=== PATIENT | female | born 1970 | race African-American/Black ===

== ENCOUNTER → 2016-09-05 | Emergency (ER) | payer OTHER ==
[~2016-09-05] MED LIST: IBUPROFEN 600 MG TABLET (FP) PO ONE; KETOROLAC TROMETHAMINE 60 MG/2 ML VIAL IM ONE; KETOROLAC TROMETHAMINE 60 MG/2 ML VIAL ONE
[2016-09-05 10:10] VITALS: BMI 36.7
--- NOTE | 2016-09-05 10:24 | PDOC ---
History of Present Illness - General History Source: Patient Exam Limitations: No Limitations - History of Present Illness Initial Comments: 09/05/16 10:26 The patient is a 46-year-old woman with a significant past medical history of hypertension, non-insulin dependent diabetes mellitus, gastroesophageal reflux disease and chronic back pain who presents to the emergency department with complaints of abdominal pain. She states that she has been experiencing intermittent abdominal discomfort sensations that are focalized over the left lower quadrant for the past year. She notes that her pain is exacerbated to a rated 7/10 in severity whenever she coughs, sneezes or with exertional activity (walking, sitting up).She notes that her pain is alleviated while at rest ( lying flat). She denies any associated symptoms of fever, chills, dysuria, flank pain, urinary frequency/urgency, constipation, blood per rectum, melena, chest pain, lightheadedness, dizziness, shortness of breath. She also notes that when she stands up, she feels a bump over her left lower quadrant. She states that she has been evaluated several times for this matter and states that she has not received a definitive answer. She presents today to the ED for further evaluation, as she started to experience left posterior thigh pain that radiates down her left leg to the knee , last night while she was reclined watching television. She does not provide any exacerbating/alleviating factors. She is able to bear weight on her leg without worsening. She expresses concern as she is unaware if her new symptoms are related to her abdominal pain. No numbness, weakness and paresthesias to her extremities. No recent trauma. Patient denies any urinary/bowel complaints. Allergies: No Known Drug Allergies Past Surgical History: None reported Social History: Never smoked. No EtOH and recreational drug use. Primary Care Physician: Dr. Eve Vazquez [phone] <Joseline Mancini - Last Filed: 09/05/16 11:47> <Lee Beltran - Last Filed: 09/05/16 14:30> - General Chief Complaint: Pain, Acute Stated Complaint: PAIN Time Seen by Provider: 09/05/16 10:12 Past History <Joseline Mancini - Last Filed: 09/05/16 11:47> - Past Medical History Diabetes: Yes GI Disorders: Yes (REFLUX) HTN: Yes - Psycho/Social/Smoking Cessation Hx Suicidal Ideation: No Smoking History: Never smoked Hx Alcohol Use: No Drug/Substance Use Hx: No <Lee Beltran - Last Filed: 09/05/16 14:30> - Past Medical History Allergies/Adverse Reactions: Allergies Allergy/AdvReac Type Severity Reaction Status Date / Time No Known Allergies Allergy Verified 09/05/16 10:28 Home Medications: Ambulatory Orders Amlodipine Besylate 5 mg PO DAILY 09/05/16 Insulin Glargine,Hum.rec.anlog [Lantus (nf)] 40 units SQ DAILY 09/05/16 Lisinopril [Zestril] 2.5 mg PO DAILY 09/05/16 Metformin HCl [Glucophage -] 500 mg PO BID 09/05/16 Omeprazole 20 mg PO DAILY 09/05/16 Review of Systems - Review of Systems Able to Perform ROS?: Yes Comments:: 09/05/16 10:26 CONSTITUTIONAL: No reported: Fever, Chills, Diaphoresis, Generalized Weakness, Malaise, Loss of Appetite HEENT: No reported: Rhinorrhea, Nasal Congestion, Throat Pain, Throat Swelling, Difficulty Swallowing, Mouth Swelling, Ear Pain, Eye Pain, Visual Changes CARDIOVASCULAR: No reported: Chest Pain, Syncope, Palpitations, Irregular Heart Rate, Lightheadedness, Peripheral Edema RESPIRATORY: No reported: Cough, Shortness of Breath, SOB with Exertion, Orthopnea, Wheezing , Stridor, Hemoptysis GASTROINTESTINAL: Reported: Left Lower Qaudrant Abdominal Pain. No reported: Abdominal Distension , Nausea, Vomiting, Diarrhea, Constipation, Melena, Hematochezia GENITOURINARY: No reported: Dysuria, Frequency, Urgency, Hesitancy, Flank Pain, Genital Pain MUSCULOSKELETAL: Reported: Left Thigh Pain Radiating Down Her Leg. No reported: Arthralgia, Joint Swelling, Back pain, Neck Pain SKIN: No reported: Rash, Itching, Pallor HEMEATOLOGIC/IMMUNOLOGIC: No reported: Easy Bleeding, Easy Bruising, Lymphadenopathy, Frequent infections ENDOCRINE: No reported: Unexplained Weight Gain, Unexplained Weight Loss, Heat Intolerance , Cold Intolerance NEUROLOGIC: No reported: Headache, Focal Weakness, Paresthesias, Vertigo, Lightheadedness, Unsteady Gait, Seizure, Mental Status Changes, Incontinence PSYCHIATRIC: No reported: Anxiety, Depression <Mancini,Joseline - Last Filed: 09/05/16 11:47> *Physical Exam - Vital Signs Last Vital Signs Temp Pulse Resp BP Pulse Ox 98 F 91 H 18 128/81 99 09/05/16 10:07 09/05/16 10:07 09/05/16 10:07 09/05/16 10:07 09/05/16 10:07 - Physical Exam Comments: 09/05/16 10:26 GENERAL: The patient is awake, alert, and fully oriented, Nontoxic - in no acute distress. HEAD: Normocephalic, atraumatic. EYES: extraocular movements intact, sclera anicteric, conjunctiva clear. ENT: Normal voice, Moist mucous membranes. NECK: Normal range of motion, supple LUNGS: Breath sounds equal, clear to auscultation bilaterally. No wheezes, no rhonchi, no rales. HEART: Regular rate and rhythm, normal S1 and S2 without murmur, rub or gallop. ABDOMEN: Soft, nontender, +reducible L splegian hernia in abdomenal wall BACK: Mild tenderness of L parapsinal muscles in lumbar region, EXTREMITIES: Normal range of motion, NEUROLOGICAL: No facial assymetry, Normal speech, strength, sensation intact and symmetric b/l in lower extremities, normal gait. PSYCH: Normal mood, normal affect. SKIN: Warm, Dry, normal turgor. <Joseline Mancini - Last Filed: 09/05/16 11:47> - Vital Signs Last Vital Signs Temp Pulse Resp BP Pulse Ox 98 F 91 H 18 128/81 99 09/05/16 10:07 09/05/16 10:07 09/05/16 10:07 09/05/16 10:07 09/05/16 10:07 <Lee Beltran - Last Filed: 09/05/16 14:30> Medical Decision Making - Medical Decision Making 09/05/16 10:56 46y F hx of dm, htn, presents with chronic L abdominal pain and new onset atraumatic L leg pain since yesterday. Pts abdominal pain is worse with movement /ambulation, and is associated with a mass in the LLQ - consistent with splegian hernia - no signs of obstruction and is only present with valsalva/ ambulation - will hv ept fu with sugury for elective repair. The pt also has chronic back pain and notes pain radiating down her L posterior thigh, seemed worsend wtih palpation in the L buttock suspect possible sciatica will give motrin will ck UA to r/u hematuria/kidney stone <Lee Beltran - Last Filed: 09/05/16 14:30> *DC/Admit/Observation/Transfer - Attestations Scribe Attestion: 09/05/16 10:26 Documentation prepared by Joseline Mancini, acting as medical instructor for Lee Beltran MD. <Joseline Mancini - Last Filed: 09/05/16 11:47> - Discharge Dispostion Admit: No <Lee Beltran - Last Filed: 09/05/16 14:30> Diagnosis at time of Disposition: Sciatica of left side Abdominal hernia Qualifiers: Hernia type: ventral Obstruction and gangrene presence: without obstruction or gangrene Qualified Code(s): K43.9 - Ventral hernia without obstruction or gangrene - Discharge Dispostion Disposition: HOME Condition at time of disposition: Improved - Referrals Referrals: Eve Vazquez MD [Primary Care Provider] - Camilo Moody MD [Staff Physician] - - Patient Instructions Printed Discharge Instructions: Ventral Hernia, DI for Ventral Hernia, DI for Back Pain With Sciatica Additional Instructions: Return to the emergency department immediately with ANY new, persistent or worsening symptoms including numbness, tingling, weakness, fevers or any other concerns. Take ibuprofen (400mg)/tylenol(650mg) every 6 hours for 2 days. Apply heat to your sore muscles. Follow up with surgery for evaluation of your hernia. Return if you have worsening pain, nausea/vomiting, inanbility to tolerate oral intake or other concerns. You MUST call and follow up with your doctor tomorrow for further evaluation of your symptoms. Your emergency department visit is not complete without a followup with your doctor for reevaluation.. Results were discussed with you. Please make sure your doctor reviews the results of your emergency evaluation.
[2016-09-05 13:03] LABS: URINE APPEARANCE CLEAR; URINE BILIRUBIN NEGATIVE (NEGATIVE); URINE BLOOD NEGATIVE (NEGATIVE); URINE COLOR LTYELLOW; URINE GLUCOSE (UA) 2+ (NEGATIVE); URINE KETONE NEGATIVE (NEGATIVE); URINE LEUK ESTERASE NEGATIVE (NEGATIVE); URINE NITRITE NEGATIVE (NEGATIVE); URINE PROTEIN NEGATIVE (NEGATIVE); URINE UROBILINOGEN NEGATIVE E.U./dl (0.2-1.0)
[2016-09-05 14:52] VITALS: BP 130/82; PULSE 90; TEMP 98.5
== END | disposition home or self-care (01) ==
LOC: JER 10:02
PROC: 3E0233Z Introduction of Anti-inflammatory into Muscle, Percutaneous Approach (ICD-10-PCS; principal; 2016-09-05)
DX: M54.32 Sciatica, left side (principal); K43.9 Ventral hernia without obstruction or gangrene; I10 Essential (primary) hypertension; E11.9 Type 2 diabetes mellitus without complications; K21.9 Gastro-esophageal reflux disease without esophagitis; M54.9 Dorsalgia, unspecified; G89.29 Other chronic pain; Z79.4 Long term (current) use of insulin; Z79.84 Long term (current) use of oral hypoglycemic drugs
CPT/HCPCS: 81003; 96372; 99281-25